=== PATIENT | male | born 1975 | race Caucasian/White ===

== ENCOUNTER → 2016-06-22 | Outpatient (CLI) | payer OTHER ==
[~2016-06-22] MED LIST: ACYC400T PO; PEPC10TA PO; ULTR50TA PO; VITATAB73 PO; [UNRECOGNIZED DRUG - OTHER] PO
--- NOTE | 2016-07-01 01:36 | ECWPNPC ---
PATIENT NAME: BETZY TRIPP : 1975 GENDER: MALE VISIT DATE: 06/22/2016 DISCHARGE DATE: 06/22/16 1629 VISIT LOCKED DATE TIME: PHYSICIAN: FREDERICK ECHEVERRIA RESOURCE: FREDERICK ECHEVERRIA REASON FOR APPOINTMENT 1. BACK- W/C HISTORY OF PRESENT ILLNESS HISTORY OF PRESENT ILLNESS: PAIN THE PATIENT DESCRIBES THE PAIN... 40 YEAR OLD MALE PATIENT WITH HISTORY OF CHRONIC BACK PAIN. PATIENT DESCRIBES THE PAIN SHARP, STABBING, IT COMES AND GOES, AND HAVING IT ALL THE TIME WITH A PAIN SORE OF 7/10 ON TODAY'S VISIT. 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 PATIENT REPORTS THAT SOMETIMES HE WAKED UP IN THE NIGHT DUE TO THE PAIN. PATIENT REPORTS THAT SOMETIMES HE DOES HAVE RADIATING PAIN DOWN TO HIS LEGS, NOT TODAY. PATIENT REPORTS THAT HE WAS CURRENTLY TAKING PHYSICAL THERAPY BUT THE SCRIPTED HAS ENDED. PATIENT REPORTS THAT WHEN HE WAS TAKING PHYSICAL THERAPY HE WENT FROM USING 4 TABS OF TRAMADOL TO ONE OR NONE A DAY. PATIENT REPORTS THAT PHYSICAL THERAPY DECREASES HIS PAIN AND ALLOWS HIM TO BE MOBILE AND ACTIVE AND DECREASE THE USAGE OF HIS MEDICATION INTAKE. , PATIENT DENIES UNEXPLAINABLE WEIGHT LOSS, FEVER, CHILLS, NEW CHANGES ON HIS URINARY OR BOWEL CONTROL. FALL RISK SCREENING: SCREENING :NO FALLS IN THE PAST YEAR CURRENT MEDICATIONS TAKING PEPCID COMPLETE 1 TABLET NEEDED ONCE DAILY TAKING ADVIL 200 MG TABLET 2 TABLETS NEEDED ORALLY EVERY 6 HRS TAKING TRAMADOL HCL 50 MG TABLET 1 ORALLY Q6H PRN PAIN MDD4 NOT-TAKING VALIUM 10 MG TABLET 1 ORALLY 1 TAB 1HR PRE PROC. MDD1 NOT-TAKING OXYCODONE HCL 5 MG TABLET 2 ORALLY 2 TAB 1HR PRE PROC. 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 SOCIAL HISTORY GENERAL: TOBACCO USE ARE YOU A:NONSMOKER LEARNING BARRIERS / SPECIAL NEEDS ORIENTED TO PLAN OF CARE: PATIENT, PAIN MANAGEMENT PATIENT, ORIENTED TO PLAN OF CARE: PATIENT, PAIN MANAGEMENT PATIENT. NEW PATIENT PAIN DIARY TODAY'S VISITNOTES FROM 0-10, WHAT LEVEL IS YOUR PAIN TODAY?0 PAIN CLINIC PFS, CLERGY, PUBLIC HEALTH REFERRALS PFS REFERRAL NEEDED?NO CLERGY REFERRAL NEEDED?NO PUBLIC HEALTH REFERRAL NEEDED?NO WAS THE PROVIDER NOTIFIED OF ANY PERTINENT INFO?NO PFS REFERRAL NEEDED?NO CLERGY REFERRAL NEEDED?NO PUBLIC HEALTH REFERRAL NEEDED?NO WAS THE PROVIDER NOTIFIED OF ANY PERTINENT INFO?NO HOSPITALIZATION/MAJOR DIAGNOSTIC PROCEDURE NO HOSPITALIZATION HISTORY. REVIEW OF SYSTEMS CONSTITUTIONAL: ANY CHANGE IN YOUR MEDICAL CONDITION? NO . CHILLS NO . FEVER NO . INFECTION: DO YOU HAVE NEW INFECTIONS? NO . DO YOU HAVE HISTORY OF MRSA? NO . MUSCULOSKELETAL: ANY NEW PATTERNS OF PAIN OR NUMBNESS? NO . GASTROENTEROLOGY: ANY NEW CHANGE IN BOWEL CONTROL? NO . GENITOURINARY: ANY NEW CHANGE IN BLADDER CONTROL? NO . IS THERE A CHANCE YOU COULD BE ? NO . HEMATOLOGY/LYMPH: DO YOU TAKE ANY BLOOD THINNERS? (FOR EXAMPLE- COUMADIN, PLAVIX, AGGRENOX, PLATEL, PRADAXA, OR XARELTO) NO . WHEN WAS YOUR LAST DOSE? DATE: TIME: . NEUROLOGY: HAVE YOU FALLEN IN THE PAST 6 MONTHS? YES, STATES HE FALLS ALL THE TIME. FELL APPROX 1 MONTH AGO ON THE ICE . ANY NEW EXTREMITY NUMBNESS OR WEAKNESS? NO . CARDIOLOGY: DO YOU HAVE A PACEMAKER OR DEFIBRILLATOR? NO . RESPIRATORY: HAVE YOU BEEN SICK IN THE PAST WEEK? NO . FEVER NO . FLU LIKE SYMPTOMS? NO . COUGH NO . INTEGUMENTARY: DO YOU HAVE ANY RASHES OR OPEN SORES? NO . ALLERGIC/IMMUNO: ARE YOU ALLERGIC TO SHELLFISH OR IV DYE? NO . ANY NEW ALLERGIES? NO . PSYCHIATRIC: DO YOU HAVE THOUGHTS OF HURTING YOURSELF OR SOMEONE ELSE? NO . ARE YOU ABUSED, NEGLECTED, OR IN AN UNSAFE ENVIRONMENT? NO . ENDOCRINOLOGY: ARE YOU DIABETIC? NO . OTHER: DO YOU NEED ANY PRESCRIPTIONS? YES, TRAMADOL . IF YES, PLEASE LIST: ____ . ANY NEW PROBLEMS WITH YOUR MEDICATIONS? NO . WHEN DID YOU LAST EAT? ____ . WHEN DID YOU LAST DRINK? ____ . WHAT DID YOU LAST DRINK? ____ . NAME OF PERSON DRIVING YOU HOME? ____ . DO YOU HAVE ANY OTHER QUESTIONS OR CONCERNS YES, NEEDS RE-EVAL TO CONTINUE PT. . REVIEWED BY: PROVIDER: FREDERICK ECHEVERRIA MD . VITAL SIGNS WT 220 LBS, HT 72 IN, BMI 29.83 INDEX, BP 140/77 MM HG, HR 78 /MIN, RR 16 /MIN, TEMP 97.5 F, OXYGEN SAT % 96, NA INITIALS SC, REVIEWED BY: AD. EXAMINATION : PATIENT IS ALERT O X 3 AND COOPERATIVE. PATIENT IS ABLE TO FLEX HIS BACK AT 85 DEGREES AND EXTEND AT 20 DEGREES. THERE IS TENDERNESS IN THE LUMBAR PARASPINAL MUSCLE GROUP. PATIENT'S RIGHT LEG IS WEAKER COMPARED TO THE LEFT LEG ESPECIALLY AT FLEXION. MRI OF THE LUMBAR SPINE DONE ON 09/16/2015 SHOWS DISC BULGES AT MULTIPLE LEVELS AND FACET ARTHROPATHY. ASSESSMENTS INTERVERTEBRAL DISC DISORDERS WITH RADICULOPATHY, LUMBAR REGION - M51.16 (PRIMARY) INTERVERTEBRAL DISC DISORDERS WITH RADICULOPATHY, LUMBOSACRAL REGION - M51.17 TREATMENT INTERVERTEBRAL DISC DISORDERS WITH RADICULOPATHY, LUMBAR REGION NOTES: WE DISCUSSED SEVERAL ISSUES WITH MR. TRIPP'S PAIN MANAGEMENT CASE. PATIENT WILL START ON CYMBALTA AND IBUPROFEN. I DISCUSSED WITH THE PATIENT THAT HE NEEDS TO TAKE IT SLOW WITH THE MEDICATIONS TO SEE HOW HIS BODY WILL REACT. I INFORMED THE PATIENT WITH IBUPROFEN HE NEEDS TO TAKE IT WITH FOOD DUE TO THE POTENTIAL SIDE EFFECTS THAT CAN AFFECT HIS STOMACH. WE WILL STOP TRAMADOL. DUE TO THE PATIENT HAVING INCREASE MOBILITY AND FUNCTIONALITY AND A DECREASE IN THE INTAKE OF MEDICATIONS I WILL WRITE ANOTHER SCRIPT FOR HIM TO CONTINUE WITH PHYSICAL THERAPY. PATIENT TO FOLLOW UP WITH ME IN 3 WEEKS. , INSTRUCTIONS WERE GIVEN, QUESTIONS WERE ANSWERED, PATIENT REPORTS UNDERSTANDING AND AGREES WITH THE PLAN. I, YUMIKO PEPPER, DOCUMENTED THE ABOVE INFORMATION ACTING A SCRIBE FOR DR. ECHEVERRIA. I HAVE REVIEWED THE ABOVE DOCUMENT, WRITTEN BY YUMIKO PEPPER SCRIBSanthosh AND I VERIFY THAT IT IS ACCURATE. OTHERS START CYMBALTA CAPSULE DELAYED RELEASE PARTICLES, 30 MG, 1 CAPSULE, ORALLY FOR PAIN, TWICE A DAY, 30 DAY(S), 60, REFILLS 1 START IBUPROFEN TABLET, 800 MG, 1 TABLET, ORALLY WITH FOOD, THREE TIMES A DAY NEEDED FOR PAIN, 30 DAY(S), 75, REFILLS 1 PROCEDURES PN WORKMANS' COMP OPINION IN YOUR OPINION, WAS THE INCIDENT THAT THE PATIENT DESCRIBED THE COMPETENT MEDICAL CAUSE OF THIS INJURY/ILLNESS? YES ARE THE PATIENT'S COMPLAINTS CONSISTENT WITH HIS/HER HISTORY OF THE INJURY/ILLNESS? YES IS THE PATIENT'S HISTORY OF THE INJURY/ILLNESS CONSISTENT WITH YOUR OBJECTIVE FINDING? YES WHAT IS THE PERCENTAGE OF TEMPORARY IMPAIRMENT? MODERATE = 50% IS THE PATIENT WORKING? NO DOCTOR ON SITE: FREDERICK RIVERA MD PREVENTIVE MEDICINE PAIN CLINIC TEACHING: MEDICATIONS PRINTED INFORMATION ON CYMBALTA AND IBUPROFEN GIVEN TO PATIENT. PATIENT GIVEN OPPORTUNITY TO ASK QUESTIONS REGARDING NEW MEDS.. PROCEDURE CODES G8730 PAIN ASSESS POS TOOL F/U PLAN DOC G8427 DOC MEDS VERIFIED W/PT OR RE DISPOSITION & COMMUNICATION FOLLOW UP 3 WEEKS ELECTRONICALLY SIGNED BY FREDERICK ECHEVERRIA MD ON 06/30/2016 AT 09:23 AM EST DISCLAIMER : THIS IS A VISIT SUMMARY EXTRACTED FROM THE [employer] CHART. IT IS NOT A COPY OF THE [employer] PROGRESS NOTE. NATALIIA
== END ==
LOC: M PAIN 14:40
PROVIDERS: ATTEND Anesthesiology
DX: M51.16 Intervertebral disc disorders with radiculopathy, lumbar region (principal); M51.17 Intervertebral disc disorders with radiculopathy, lumbosacral region; M54.5 Low back pain; M54.2 Cervicalgia; G89.29 Other chronic pain; Z79.891 Long term (current) use of opiate analgesic

== ENCOUNTER → 2016-07-13 | Outpatient (CLI) | payer OTHER ==
--- NOTE | 2016-07-24 23:34 | ECWPNPC ---
PATIENT NAME: BETZY TRIPP : 1975 GENDER: MALE VISIT DATE: 07/13/2016 DISCHARGE DATE: 07/13/16 1650 VISIT LOCKED DATE TIME: PHYSICIAN: FREDERICK ECHEVERRIA RESOURCE: FREDERICK ECHEVERRIA REASON FOR APPOINTMENT 1. W/C BACK HISTORY OF PRESENT ILLNESS HISTORY OF PRESENT ILLNESS: PAIN THE PATIENT DESCRIBES THE PAIN... 40 YEAR OLD MALE PATIENT WITH HISTORY OF CHRONIC BACK PAIN. PATIENT DESCRIBES THE PAIN ACHING, SHARP, STABBING, THROBBING, SORE, SHOOTING, AND HAVING IT ALL THE TIME WITH A PAIN SCORE OF 9/10 ON TODAY'S VISIT. PATIENT REPORTS THAT SINCE HE HAS STOPPED PHYSICAL THERAPY HIS PAIN LEVELS HAVE GONE UP AND HIS MEDICATION INTAKE OF TRAMADOL HAS INCREASED. PATIENT REPORTS THAT HE WAS NOT ABLE TO TAKE CYMBALTA PRESCRIBED ON THE LAST VISIT, DUE TO WORKER COMP DENYING THE MEDICATION. PATIENT STATES THAT BEFORE PHYSICAL THERAPY HE HAD DIFFICULTIES PUTTING ON CLOTHING, SHOES AND SOCKS, DRIVING A VEHICLE AND GETTING IN AND OUT OF THE CAR. DURING PHYSICAL THERAPY PUTTING ON CLOTHING, SHOES, AND SOCK BECAME AN EASIER TASK, DRIVING A VEHICLE AND GETTING IN AND OUT OF THE CAR WAS ALSO EASIER. NOW PATIENT REPORTS THAT DOING THE SAME TASK IS BECOMING DIFFICULT AGAIN. PATIENT DENIES UNEXPLAINABLE WEIGHT LOSS, FEVER, CHILLS, NEW CHANGES ON HIS URINARY OR BOWEL CONTROL. FALL RISK SCREENING: SCREENING :NO FALLS IN THE PAST YEAR CURRENT MEDICATIONS TAKING IBUPROFEN 800 MG TABLET 1 TABLET ORALLY WITH FOOD THREE TIMES A DAY NEEDED FOR PAIN TAKING PEPCID COMPLETE 1 TABLET NEEDED ONCE DAILY TAKING ADVIL 200 MG TABLET 2 TABLETS NEEDED ORALLY EVERY 6 HRS TAKING TRAMADOL HCL 50 MG TABLET 1 ORALLY Q6H PRN PAIN MDD4 TAKING ALEVE 220 MG TABLET 1 TABLET NEEDED ORALLY EVERY 12 HRS NOT-TAKING CYMBALTA 30 MG CAPSULE DELAYED RELEASE PARTICLES 1 CAPSULE ORALLY FOR PAIN TWICE A DAY NOT-TAKING VALIUM 10 MG TABLET 1 ORALLY 1 TAB 1HR PRE PROC. MDD1 NOT-TAKING OXYCODONE HCL 5 MG TABLET 2 ORALLY 2 TAB 1HR PRE PROC. 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 SOCIAL HISTORY GENERAL: TOBACCO USE ARE YOU A:NONSMOKER LEARNING BARRIERS / SPECIAL NEEDS ORIENTED TO PLAN OF CARE: PATIENT, PAIN MANAGEMENT PATIENT, ORIENTED TO PLAN OF CARE: PATIENT, PAIN MANAGEMENT PATIENT. NEW PATIENT PAIN DIARY TODAY'S VISITNOTES FROM 0-10, WHAT LEVEL IS YOUR PAIN TODAY?0 PAIN CLINIC PFS, CLERGY, PUBLIC HEALTH REFERRALS PFS REFERRAL NEEDED?NO CLERGY REFERRAL NEEDED?NO PUBLIC HEALTH REFERRAL NEEDED?NO WAS THE PROVIDER NOTIFIED OF ANY PERTINENT INFO?NO PFS REFERRAL NEEDED?NO CLERGY REFERRAL NEEDED?NO PUBLIC HEALTH REFERRAL NEEDED?NO WAS THE PROVIDER NOTIFIED OF ANY PERTINENT INFO?NO HOSPITALIZATION/MAJOR DIAGNOSTIC PROCEDURE NO HOSPITALIZATION HISTORY. REVIEW OF SYSTEMS CONSTITUTIONAL: ANY CHANGE IN YOUR MEDICAL CONDITION? NO . CHILLS NO . FEVER NO . INFECTION: DO YOU HAVE NEW INFECTIONS? NO . DO YOU HAVE HISTORY OF MRSA? NO . MUSCULOSKELETAL: ANY NEW PATTERNS OF PAIN OR NUMBNESS? YES PT REPORTS HE FEELS HIS PAIN HAS NOW EXTENDED TOWARDS BUTTOCKS AND HIPS AND HAS INCREASED IN INTENSITY . GASTROENTEROLOGY: ANY NEW CHANGE IN BOWEL CONTROL? NO . GENITOURINARY: ANY NEW CHANGE IN BLADDER CONTROL? NO . IS THERE A CHANCE YOU COULD BE ? NO . HEMATOLOGY/LYMPH: DO YOU TAKE ANY BLOOD THINNERS? (FOR EXAMPLE- COUMADIN, PLAVIX, AGGRENOX, PLATEL, PRADAXA, OR XARELTO) NO . WHEN WAS YOUR LAST DOSE? DATE: TIME: . NEUROLOGY: HAVE YOU FALLEN IN THE PAST 6 MONTHS? NO . ANY NEW EXTREMITY NUMBNESS OR WEAKNESS? NO . CARDIOLOGY: DO YOU HAVE A PACEMAKER OR DEFIBRILLATOR? NO . RESPIRATORY: HAVE YOU BEEN SICK IN THE PAST WEEK? NO . FEVER NO . FLU LIKE SYMPTOMS? NO . COUGH NO . INTEGUMENTARY: DO YOU HAVE ANY RASHES OR OPEN SORES? NO . ALLERGIC/IMMUNO: ARE YOU ALLERGIC TO SHELLFISH OR IV DYE? NO . ANY NEW ALLERGIES? NO . PSYCHIATRIC: DO YOU HAVE THOUGHTS OF HURTING YOURSELF OR SOMEONE ELSE? NO . ARE YOU ABUSED, NEGLECTED, OR IN AN UNSAFE ENVIRONMENT? NO . ENDOCRINOLOGY: ARE YOU DIABETIC? NO . OTHER: DO YOU NEED ANY PRESCRIPTIONS? YES TRAMADOL . IF YES, PLEASE LIST: ____ . ANY NEW PROBLEMS WITH YOUR MEDICATIONS? NO . WHEN DID YOU LAST EAT? ____ . WHEN DID YOU LAST DRINK? ____ . WHAT DID YOU LAST DRINK? ____ . NAME OF PERSON DRIVING YOU HOME? ____ . DO YOU HAVE ANY OTHER QUESTIONS OR CONCERNS YES CYMBALTA WAS NOT APPROVED. PT ALSO REPORTS HE WAS NOT ABLE TO GET PHYSICAL THERAPY, IT WAS DENIED BECAUSE OF AN INCOMPLETE ORDER . REVIEWED BY: PROVIDER: FREDERICK ECHEVERRIA MD . VITAL SIGNS WT 221 LBS, HT 72 IN, BMI 29.97 INDEX, BP 132/78 MM HG, HR 62 /MIN, RR 16 /MIN, TEMP 97.6 F, OXYGEN SAT % 97%, SAFE IN ENV? (Y/N) YES, NA INITIALS SC 15:05, REVIEWED BY: KIRILL. EXAMINATION : PATIENT IS ALERT O X 3 AND COOPERATIVE. PATIENT AMBULATES WITH A LIMP ON THE RIGHT LEG. THERE IS TENDERNESS IN THE LUMBAR PARASPINAL MUSCLE GROUP. RIGHT LEG IS WEAKER AT FLEXION AND EXTENSION. MRI OF THE LUMBAR SPINE DONE ON 09/16/2015 SHOWS DISC BULGES AT MULTIPLE LEVELS, CANAL STENOSIS, AND FACET ARTHROPATHY. ASSESSMENTS INTERVERTEBRAL DISC DISORDERS WITH RADICULOPATHY, LUMBAR REGION - M51.16 (PRIMARY) INTERVERTEBRAL DISC DISORDERS WITH RADICULOPATHY, LUMBOSACRAL REGION - M51.17 TREATMENT INTERVERTEBRAL DISC DISORDERS WITH RADICULOPATHY, LUMBAR REGION NOTES: WE DISCUSSED SEVERAL ISSUES WITH MR. TRIPP'S PAIN MANAGEMENT CASE. AT THIS TIME PATIENT WILL CONTINUE ON TRAMADOL DUE TO COMP DENYING CYMBALTA, PATIENT IS A GOOD CANDIDATE FOR A L5-S1 EPIDURAL INJECTION. WE DISCUSSED THE RISK, BENEFITS, AND ALTERNATIVES AND THE PATIENT WOULD LIKE TO PROCEED. PATIENT WILL BE BOOKED PENDING APPROVAL. DUE TO THE SUCCESS OF PHYSICAL THERAPY I WILL REQUEST APPROVAL FOR THE PATIENT TO CONTINUE WITH PHYSICAL THERAPY FOR 6 WEEKS, 3 TIMES A WEEK. PATIENT WILL FOLLOW UP WITH ME IN 1 MONTH. INSTRUCTIONS WERE GIVEN, QUESTIONS WERE ANSWERED, PATIENT REPORTS UNDERSTANDING AND AGREES WITH THE PLAN. I, YUIMKO PEPPER, DOCUMENTED THE ABOVE INFORMATION ACTING A SCRIBE FOR DR. ECHEVERRIA. I HAVE REVIEWED THE ABOVE DOCUMENT, WRITTEN BY YUMIKO PEPPER SCRIBSanthosh AND I VERIFY THAT IT IS ACCURATE. ,. OTHERS REFILL IBUPROFEN TABLET, 800 MG, 1 TABLET, ORALLY WITH FOOD, THREE TIMES A DAY NEEDED FOR PAIN, 30 DAY(S), 75, REFILLS 1 REFILL TRAMADOL HCL TABLET, 50 MG, 1, ORALLY, Q6H PRN PAIN MDD4, 30 DAY(S), 105, REFILLS 0 NOTES: LUMBAR EPIDURAL INJECTION: YOUR PROCEDURE MATERIAL WAS PRINTED. PROCEDURES PN WORKMANS' COMP OPINION IN YOUR OPINION, WAS THE INCIDENT THAT THE PATIENT DESCRIBED THE COMPETENT MEDICAL CAUSE OF THIS INJURY/ILLNESS? YES ARE THE PATIENT'S COMPLAINTS CONSISTENT WITH HIS/HER HISTORY OF THE INJURY/ILLNESS? YES IS THE PATIENT'S HISTORY OF THE INJURY/ILLNESS CONSISTENT WITH YOUR OBJECTIVE FINDING? YES WHAT IS THE PERCENTAGE OF TEMPORARY IMPAIRMENT? MODERATE = 50% IS THE PATIENT WORKING? YES DOCTOR ON SITE: FREDERICK RIVERA MD PROCEDURE CODES FA211 ESTABILISHED PATIENT [facility] FACILITY CHARGE G8730 PAIN ASSESS POS TOOL F/U PLAN DOC G8427 DOC MEDS VERIFIED W/PT OR RE DISPOSITION & COMMUNICATION FOLLOW UP 4 WEEKS ELECTRONICALLY SIGNED BY FREDERICK ECHEVERRIA MD ON 07/24/2016 AT 08:53 PM EDT DISCLAIMER : THIS IS A VISIT SUMMARY EXTRACTED FROM THE [employer] CHART. IT IS NOT A COPY OF THE [employer] PROGRESS NOTE. NATALIIA
== END ==
LOC: M PAIN 14:40
PROVIDERS: ATTEND Anesthesiology
DX: Z09 Encounter for follow-up examination after completed treatment for conditions other than malignant neoplasm (principal); G89.29 Other chronic pain; M51.16 Intervertebral disc disorders with radiculopathy, lumbar region; M51.17 Intervertebral disc disorders with radiculopathy, lumbosacral region; J30.89 Other allergic rhinitis; Z79.891 Long term (current) use of opiate analgesic; Z79.1 Long term (current) use of non-steroidal anti-inflammatories (NSAID); Z79.899 Other long term (current) drug therapy

== ENCOUNTER → 2016-08-20 | Outpatient (CLI) | payer OTHER | LOC: M PAIN 15:00 | PROVIDERS: ATTEND Anesthesiology | DX: Z53.29 Procedure and treatment not carried out because of patient's decision for other reasons (principal) ==

== ENCOUNTER → 2016-10-19 | Outpatient (CLI) | payer OTHER ==
--- NOTE | 2016-10-20 00:17 | ECWPNPC ---
PATIENT NAME: BETZY TRIPP : 1975 GENDER: MALE VISIT DATE: 10/19/2016 DISCHARGE DATE: 10/19/16 1601 VISIT LOCKED DATE TIME: PHYSICIAN: RJ CARDOSO RESOURCE: RJ CARDOSO REASON FOR APPOINTMENT 1. W/C BACK HISTORY OF PRESENT ILLNESS HISTORY OF PRESENT ILLNESS: HERE FOR F/U AND MANAGEMENT OF PERSISTENT LOW BACK PAIN.DESCRIBES PAIN CONSTANT ACHING ACROSS LOW BACK R>L.REPORTS INTERMITTENT RIGHT LEG PAIN.RATING PAIN VAS 8/10.JUST BEGAN PT.REPORTING SOME IMPROVEMENT IN PAIN.DISCUSSED LESI AND PATIENT WOULD LIKE TO HOLD OFF UNTIL FALL.STATES HIS PAIN USUALLY GETS BETTER IN SUMMER.REPORTS THAT RAIN AGGREVATES PAIN.USING TRAMADOL 50MG TID.RATING PAIN VAS 8/10.THIS IS A WORK RELATED INJURY 1996. PAIN THE PATIENT DESCRIBES THE PAIN... THE PATIENT DESCRIBES THE PAIN... FALL RISK SCREENING: SCREENING :NO FALLS IN THE PAST YEAR CURRENT MEDICATIONS TAKING PEPCID COMPLETE 1 TABLET NEEDED ONCE DAILY TAKING ADVIL 200 MG TABLET 2 TABLETS NEEDED ORALLY EVERY 6 HRS TAKING ALEVE 220 MG TABLET 1 TABLET NEEDED ORALLY EVERY 12 HRS TAKING TRAMADOL HCL 50 MG TABLET 1 ORALLY Q6H PRN PAIN MDD4 NOT-TAKING IBUPROFEN 800 MG TABLET 1 TABLET ORALLY WITH FOOD THREE TIMES A DAY NEEDED FOR PAIN NOT-TAKING CYMBALTA 30 MG CAPSULE DELAYED RELEASE PARTICLES 1 CAPSULE ORALLY FOR PAIN TWICE A DAY NOT-TAKING VALIUM 10 MG TABLET 1 ORALLY 1 TAB 1HR PRE PROC. MDD1 NOT-TAKING OXYCODONE HCL 5 MG TABLET 2 ORALLY 2 TAB 1HR PRE PROC. 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 NO . CHILLS NO . FEVER NO . INFECTION: DO YOU HAVE NEW INFECTIONS? NO . DO YOU HAVE HISTORY OF MRSA? NO . MUSCULOSKELETAL: ANY NEW PATTERNS OF PAIN OR NUMBNESS? NO . GASTROENTEROLOGY: ANY NEW CHANGE IN BOWEL CONTROL? NO . GENITOURINARY: ANY NEW CHANGE IN BLADDER CONTROL? NO . IS THERE A CHANCE YOU COULD BE ? NO . HEMATOLOGY/LYMPH: DO YOU TAKE ANY BLOOD THINNERS? (FOR EXAMPLE- COUMADIN, PLAVIX, AGGRENOX, PLATEL, PRADAXA, OR XARELTO) NO . WHEN WAS YOUR LAST DOSE? DATE: TIME: . NEUROLOGY: HAVE YOU FALLEN IN THE PAST 6 MONTHS? YES, PT STATES 06/2016, HE WAS WALKING INTO [employer], HIS RIGHT FOOT OCCASIONALLY DROPS WHILE WALKING, FELL FACE FORWARD. PT DENIES INJURY REQUIRING MEDICAL ATTENTION . ANY NEW EXTREMITY NUMBNESS OR WEAKNESS? NO . CARDIOLOGY: DO YOU HAVE A PACEMAKER OR DEFIBRILLATOR? NO . RESPIRATORY: HAVE YOU BEEN SICK IN THE PAST WEEK? NO . FEVER NO . FLU LIKE SYMPTOMS? NO . COUGH NO . INTEGUMENTARY: DO YOU HAVE ANY RASHES OR OPEN SORES? NO . ALLERGIC/IMMUNO: ARE YOU ALLERGIC TO SHELLFISH OR IV DYE? NO . ANY NEW ALLERGIES? NO . PSYCHIATRIC: DO YOU HAVE THOUGHTS OF HURTING YOURSELF OR SOMEONE ELSE? NO . ARE YOU ABUSED, NEGLECTED, OR IN AN UNSAFE ENVIRONMENT? NO . ENDOCRINOLOGY: ARE YOU DIABETIC? NO . OTHER: DO YOU NEED ANY PRESCRIPTIONS? YES, TRAMADOL . IF YES, PLEASE LIST: ____ . ANY NEW PROBLEMS WITH YOUR MEDICATIONS? NO . WHEN DID YOU LAST EAT? ____ . WHEN DID YOU LAST DRINK? ____ . WHAT DID YOU LAST DRINK? ____ . NAME OF PERSON DRIVING YOU HOME? ____ . DO YOU HAVE ANY OTHER QUESTIONS OR CONCERNS NO . REVIEWED BY: PROVIDER: RJ BECKER . VITAL SIGNS WT 220.0 LBS, HT 72 IN, BMI 29.83 INDEX, BP 142/89 MM HG, HR 60 /MIN, RR 16 /MIN, TEMP 98.0 F, OXYGEN SAT % 96%, SAFE IN ENV? (Y/N) Y, NA INITIALS TL 1459, REVIEWED BY: EM. EXAMINATION GENERAL EXAMINATION: LUNGS:LUNG SOUNDS ARE CLEAR. HEART:HEART RATE REGULAR. MUSCULOSKELETAL:*, MUSCLE STRENGTH TESTING 5/5 BILATERAL, PALPATION: POSITIVE FOR PAIN OVER L/S SPINE. POSITIVE FOR PAIN OVER RIGHT LUMBAR FACET AND RIGHT SIJ.. DIAGNOSTIC: . ASSESSMENTS LUMBAR SPINAL STENOSIS - M48.06 (PRIMARY) PROTRUDED LUMBAR DISC - M51.26 LUMBAR RADICULOPATHY - M54.16 SACROILIAC JOINT PAIN - M53.3 TREATMENT LUMBAR SPINAL STENOSIS REFILL TRAMADOL HCL TABLET, 50 MG, 1, ORALLY, Q6H PRN PAIN MDD4, 30 DAYS, 105, REFILLS 0 NOTES: CONTINUE PT. PROCEDURES PN WORKMANS' COMP OPINION IN YOUR OPINION, WAS THE INCIDENT THAT THE PATIENT DESCRIBED THE COMPETENT MEDICAL CAUSE OF THIS INJURY/ILLNESS? YES ARE THE PATIENT'S COMPLAINTS CONSISTENT WITH HIS/HER HISTORY OF THE INJURY/ILLNESS? YES IS THE PATIENT'S HISTORY OF THE INJURY/ILLNESS CONSISTENT WITH YOUR OBJECTIVE FINDING? YES WHAT IS THE PERCENTAGE OF TEMPORARY IMPAIRMENT? MODERATE = 50% IS THE PATIENT WORKING? YES DOCTOR ON SITE: FREDERICK RIVERA MD DISPOSITION & COMMUNICATION FOLLOW UP 4 WEEKS W/C DR. ECHEVERRIA ELECTRONICALLY SIGNED BY EUGENIO WOLFF ON 10/19/2016 AT 04:17 PM EDT DISCLAIMER : THIS IS A VISIT SUMMARY EXTRACTED FROM THE [employer] CHART. IT IS NOT A COPY OF THE [employer] PROGRESS NOTE. NATALIIA
== END | disposition home or self-care (01) ==
LOC: M PAIN 15:00
PROVIDERS: ATTEND Nurse Practitioner Family
DX: G89.29 Other chronic pain (principal); M48.06 Spinal stenosis, lumbar region; M51.26 Other intervertebral disc displacement, lumbar region; M54.16 Radiculopathy, lumbar region; M53.3 Sacrococcygeal disorders, not elsewhere classified; M54.2 Cervicalgia; R12 Heartburn; M19.90 Unspecified osteoarthritis, unspecified site; J30.89 Other allergic rhinitis

== ENCOUNTER → 2016-11-16 | Outpatient (CLI) | payer OTHER ==
--- NOTE | 2016-11-30 02:11 | ECWPNPC ---
PATIENT NAME: BETZY TRIPP : 1975 GENDER: MALE VISIT DATE: 11/16/2016 DISCHARGE DATE: 11/16/16 1620 VISIT LOCKED DATE TIME: PHYSICIAN: FREDERICK ECHEVERRIA RESOURCE: FREDERICK ECHEVERRIA REASON FOR APPOINTMENT 1. W/C BACK PAIN HISTORY OF PRESENT ILLNESS HISTORY OF PRESENT ILLNESS: PAIN THE PATIENT DESCRIBES THE PAIN... 40 YEAR OLD MALE PATIENT WITH HISTORY OF CHRONIC BACK PAIN. PATIENT DESCRIBES THE PAIN SHARP, STABBING, IT COMES AND GOES, AND HAVING IT ALL THE TIME WITH A PAIN SORE OF 4/10 ON TODAY'S VISIT. 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 PATIENT REPORTS THAT SOMETIMES HE WAKED UP IN THE NIGHT DUE TO THE PAIN. PATIENT REPORTS THAT SOMETIMES HE DOES HAVE RADIATING PAIN DOWN TO HIS LEGS. PATIENT WOULD LIKE ANOTHER SCRIPT FOR PHYSICAL THERAPY. FALL RISK SCREENING: SCREENING :NO FALLS IN THE PAST YEAR CURRENT MEDICATIONS TAKING PEPCID COMPLETE 1 TABLET NEEDED ONCE DAILY TAKING ADVIL 200 MG TABLET 2 TABLETS NEEDED ORALLY EVERY 6 HRS TAKING TRAMADOL HCL 50 MG TABLET 1 ORALLY Q6H PRN PAIN MDD4 NOT-TAKING IBUPROFEN 800 MG TABLET 1 TABLET ORALLY WITH FOOD THREE TIMES A DAY NEEDED FOR PAIN NOT-TAKING VALIUM 10 MG TABLET 1 ORALLY 1 TAB 1HR PRE PROC. MDD1 DISCONTINUED ALEVE 220 MG TABLET 1 TABLET NEEDED ORALLY EVERY 12 HRS DISCONTINUED CYMBALTA 30 MG CAPSULE DELAYED RELEASE PARTICLES 1 CAPSULE ORALLY FOR PAIN TWICE A DAY DISCONTINUED OXYCODONE HCL 5 MG TABLET 2 ORALLY 2 TAB 1HR PRE PROC. MDD2 MEDICATION LIST REVIEWED AND RECONCILED WITH THE PATIENT PAST MEDICAL HISTORY LOW BACK PAIN NECK PAIN HEARTBURN ARTHRITIS ALLERGIES ENVIRONMENTAL: SINUS CONGESTION: ALLERGY REVIEW OF SYSTEMS REVIEWED BY: PROVIDER: . CONSTITUTIONAL: ANY CHANGE IN YOUR MEDICAL CONDITION? NO . CHILLS NO . FEVER NO . INFECTION: DO YOU HAVE NEW INFECTIONS? NO . DO YOU HAVE HISTORY OF MRSA? NO . MUSCULOSKELETAL: ANY NEW PATTERNS OF PAIN OR NUMBNESS? YES, PAIN IS MORE IN RIGHT BUTTUCKS AND RADIATES UP INTO THE BACK. TRAMADOL DOESNT HELP THE PAIN. HURTS TO STANDS. . GASTROENTEROLOGY: ANY NEW CHANGE IN BOWEL CONTROL? NO . GENITOURINARY: ANY NEW CHANGE IN BLADDER CONTROL? NO . IS THERE A CHANCE YOU COULD BE ? NO . HEMATOLOGY/LYMPH: DO YOU TAKE ANY BLOOD THINNERS? (FOR EXAMPLE- COUMADIN, PLAVIX, AGGRENOX, PLATEL, PRADAXA, OR XARELTO) NO . WHEN WAS YOUR LAST DOSE? DATE: TIME: . NEUROLOGY: HAVE YOU FALLEN IN THE PAST 6 MONTHS? NO . ANY NEW EXTREMITY NUMBNESS OR WEAKNESS? NO . CARDIOLOGY: DO YOU HAVE A PACEMAKER OR DEFIBRILLATOR? NO . RESPIRATORY: HAVE YOU BEEN SICK IN THE PAST WEEK? NO . FEVER NO . FLU LIKE SYMPTOMS? NO . COUGH NO . INTEGUMENTARY: DO YOU HAVE ANY RASHES OR OPEN SORES? NO . ALLERGIC/IMMUNO: ARE YOU ALLERGIC TO SHELLFISH OR IV DYE? NO . ANY NEW ALLERGIES? NO . PSYCHIATRIC: DO YOU HAVE THOUGHTS OF HURTING YOURSELF OR SOMEONE ELSE? NO . ARE YOU ABUSED, NEGLECTED, OR IN AN UNSAFE ENVIRONMENT? NO . ENDOCRINOLOGY: ARE YOU DIABETIC? NO . OTHER: DO YOU NEED ANY PRESCRIPTIONS? NO . IF YES, PLEASE LIST: ____ . ANY NEW PROBLEMS WITH YOUR MEDICATIONS? NO . WHEN DID YOU LAST EAT? ____ . WHEN DID YOU LAST DRINK? ____ . WHAT DID YOU LAST DRINK? ____ . NAME OF PERSON DRIVING YOU HOME? ____ . DO YOU HAVE ANY OTHER QUESTIONS OR CONCERNS YES, PT HELPED AND WOULD LIKE TO CONTINUE IT FOR THE RIGHT HIP/BUTTUCKS PAIN. SOMETIMES IT IS IN THE LEFT SIDE. . VITAL SIGNS WT 234.6 LBS, HT 72 IN, BMI 31.81 INDEX, BP 136/83 MM HG, HR 62 /MIN, RR 18 /MIN, TEMP 98.2 F, OXYGEN SAT % 96%, NA INITIALS SC 15:51, REVIEWED BY: KAYLEY. EXAMINATION : PATIENT IS ALERT O X 3 AND COOPERATIVE. PATIENT AMBULATES WITH A LIMP ON THE RIGHT LEG. THERE IS TENDERNESS IN THE LUMBAR PARASPINAL MUSCLE GROUP. RIGHT LEG IS WEAKER AT FLEXION AND EXTENSION. MRI OF THE LUMBAR SPINE DONE ON 09/16/2015 SHOWS DISC BULGES AT MULTIPLE LEVELS, CANAL STENOSIS, AND FACET ARTHROPATHY. 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 TRIPP'S PAIN MANAGEMENT CASE. AT THIS TIME THE PATIENT WILL CONTINUE WITH THE SAME MEDICATION REGIME BEFORE. PATIENT WILL USE TRAMADOL FOR THE SOMATIC PAIN AND IBUPROFEN FOR THE INFLAMMATION. PATIENT DENIES ABUSE OF ANY MEDICATION, DENIES USE OF ILLEGAL SUBSTANCES, AND STATES THAT HE IS ONLY USING THE MEDICATION FOR PAIN MANAGEMENT. PATIENT WAS REMINDED TO BRING ALL MEDICATIONS TO EACH VISIT. URINE TOXICOLOGY REPORT DONE ON 06/22/16 SHOWS CONSISTENT RESULTS WITH THE PATIENTS MEDICATION LIST. I WOULD LIKE THE PATIENT TO CONTINUE PHYSICAL THERAPY AT THIS TIME. WE DISCUSSED SEVERAL INJECTIONS THAT MAY AID THE PATIENT IN RELIEF. MR. TRIPP IS A GOOD CANDIDATE FOR SACROILIAC JOINT BLOCK OR A LUMBAR EPIDURAL. AT THIS TIME THE PATIENT REPORTS HIS PAIN IS MANAGEABLE AND DOES NOT WANT TO MOVE FORWARD WITH INTERVENTIONS AT THIS TIME. PATIENT WILL FOLLOW UP IN 2 MONTHS. INSTRUCTIONS WERE GIVEN, QUESTIONS WERE ANSWERED, PATIENT REPORTS UNDERSTANDING AND AGREES WITH THE PLAN. I, PAOLO CALLAWAY, DOCUMENTED THE ABOVE INFORMATION ACTING A SCRIBE FOR DR. ECHEVERRIA. I HAVE REVIEWED THE ABOVE DOCUMENT, WRITTEN BY PAOLO ANTHONY AND I VERIFY THAT IT IS ACCURATE. LUMBAR SPINAL STENOSIS REFILL TRAMADOL HCL TABLET, 50 MG, 1, ORALLY, Q6H PRN PAIN MDD4, 30 DAYS, 105, REFILLS 0 OTHERS REFILL IBUPROFEN TABLET, 800 MG, 1 TABLET, ORALLY WITH FOOD, THREE TIMES A DAY NEEDED FOR PAIN, 30 DAYS, 60, REFILLS 0 PROCEDURES PN WORKMANS' COMP OPINION IN YOUR OPINION, WAS THE INCIDENT THAT THE PATIENT DESCRIBED THE COMPETENT MEDICAL CAUSE OF THIS INJURY/ILLNESS? YES ARE THE PATIENT'S COMPLAINTS CONSISTENT WITH HIS/HER HISTORY OF THE INJURY/ILLNESS? YES IS THE PATIENT'S HISTORY OF THE INJURY/ILLNESS CONSISTENT WITH YOUR OBJECTIVE FINDING? YES WHAT IS THE PERCENTAGE OF TEMPORARY IMPAIRMENT? MODERATE = 50% IS THE PATIENT WORKING? YES DOCTOR ON SITE: FREDERICK RIVERA MD PROCEDURE CODES FA211 ESTABILISHED PATIENT [facility] FACILITY CHARGE G8427 DOC MEDS VERIFIED W/PT OR RE G8730 PAIN ASSESS POS TOOL F/U PLAN DOC DISPOSITION & COMMUNICATION FOLLOW UP 2 MONTHS ELECTRONICALLY SIGNED BY FREDERICK ECHEVERRIA MD ON 11/29/2016 AT 08:34 PM EDT DISCLAIMER : THIS IS A VISIT SUMMARY EXTRACTED FROM THE [employer] CHART. IT IS NOT A COPY OF THE [employer] PROGRESS NOTE. NATALIIA
== END | disposition home or self-care (01) ==
LOC: M PAIN 15:40
PROVIDERS: ATTEND Anesthesiology
DX: G89.29 Other chronic pain (principal); M46.1 Sacroiliitis, not elsewhere classified; M48.06 Spinal stenosis, lumbar region; M51.16 Intervertebral disc disorders with radiculopathy, lumbar region; M51.17 Intervertebral disc disorders with radiculopathy, lumbosacral region; M47.816 Spondylosis without myelopathy or radiculopathy, lumbar region; M47.817 Spondylosis without myelopathy or radiculopathy, lumbosacral region; R12 Heartburn; M19.90 Unspecified osteoarthritis, unspecified site; Z79.899 Other long term (current) drug therapy; J30.9 Allergic rhinitis, unspecified

== ENCOUNTER → 2017-01-20 | Outpatient (CLI) | payer OTHER ==
--- NOTE | 2017-01-27 02:13 | ECWPNPC ---
PATIENT NAME: BETZY TRIPP : 1975 GENDER: MALE VISIT DATE: 01/20/2017 DISCHARGE DATE: 01/20/17 1646 VISIT LOCKED DATE TIME: PHYSICIAN: FREDERICK ECHEVERRIA RESOURCE: FREDERICK ECHEVERRIA REASON FOR APPOINTMENT 1. LOW BACK PAIN W/C HISTORY OF PRESENT ILLNESS HISTORY OF PRESENT ILLNESS: PAIN THE PATIENT DESCRIBES THE PAIN... 40 YEAR OLD MALE PATIENT WITH HISTORY OF CHRONIC BACK PAIN. PATIENT DESCRIBES THE PAIN SHARP, STABBING, IT COMES AND GOES, AND HAVING IT ALL THE TIME WITH A PAIN SORE OF 4/10 ON TODAY'S VISIT. 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 PATIENT REPORTS THE PAIN RADIATES DOWN THE BACK INTO THE SACROILIAC JOINT. PATIENT IS USING IBUPROFEN, ADVIL, AND TRAMADOL FOR THE PAIN AND REPORTS THE MEDICATION TAKING THE EDGE OFF. PATIENT REPORTS DOING PHYSICAL THERAPY IN THE PAST AND STATES THAT IS INCREASING HIS MOBILITY AND FUNCTIONALITY. PATIENT CONTINUES TO DO STRETCHING AT HOME BUT REPORTS HE HAS MORE OF A BENEFIT WHEN HE GOES TO PHYSICAL THERAPY. MR. TRIPP STATES IT IS EASIER FOR HIM TO BEND OVER TO TIE HIS SHOES, SHOWER, AND CONTINUE TO WORK AT HIS JOB. PATIENT DENIES UNEXPLAINABLE WEIGHT LOSS, FEVER, CHILLS, NEW CHANGES ON HER URINARY OR BOWEL CONTROL. FALL RISK SCREENING: SCREENING :NO FALLS IN THE PAST YEAR CURRENT MEDICATIONS TAKING PEPCID COMPLETE 1 TABLET NEEDED ONCE DAILY TAKING ADVIL 200 MG TABLET 2 TABLETS NEEDED ORALLY EVERY 6 HRS TAKING TRAMADOL HCL 50 MG TABLET 1 ORALLY Q6H PRN PAIN MDD4 TAKING IBUPROFEN 800 MG TABLET 1 TABLET ORALLY WITH FOOD THREE TIMES A DAY NEEDED FOR PAIN NOT-TAKING VALIUM 10 MG TABLET 1 ORALLY 1 TAB 1HR PRE PROC. MDD1 MEDICATION LIST REVIEWED AND RECONCILED WITH THE PATIENT PAST MEDICAL HISTORY LOW BACK PAIN NECK PAIN HEARTBURN ARTHRITIS ALLERGIES ENVIRONMENTAL: SINUS CONGESTION: ALLERGY SURGICAL HISTORY HERNIA REPAIR YEARS AGO PYLORIC STENOSIS YEARS AGO REVIEW OF SYSTEMS REVIEWED BY: PROVIDER: FREDERICK ECHEVERRIA MD . CONSTITUTIONAL: ANY CHANGE IN YOUR MEDICAL CONDITION? NO . CHILLS NO . FEVER NO . INFECTION: DO YOU HAVE NEW INFECTIONS? NO . DO YOU HAVE HISTORY OF MRSA? NO . MUSCULOSKELETAL: ANY NEW PATTERNS OF PAIN OR NUMBNESS? YES, PT C/O CHANGE IN TYPE OF PAIN. PT STATES MEDS ARE NOT WORKING WELL THEY USED TO. PT STATES PAIN IS WORSENING WITH TIME. . GASTROENTEROLOGY: ANY NEW CHANGE IN BOWEL CONTROL? NO . GENITOURINARY: ANY NEW CHANGE IN BLADDER CONTROL? NO . IS THERE A CHANCE YOU COULD BE ? NO . HEMATOLOGY/LYMPH: DO YOU TAKE ANY BLOOD THINNERS? (FOR EXAMPLE- COUMADIN, PLAVIX, AGGRENOX, PLATEL, PRADAXA, OR XARELTO) NO . WHEN WAS YOUR LAST DOSE? DATE: TIME: . NEUROLOGY: HAVE YOU FALLEN IN THE PAST 6 MONTHS? NO . ANY NEW EXTREMITY NUMBNESS OR WEAKNESS? NO . CARDIOLOGY: DO YOU HAVE A PACEMAKER OR DEFIBRILLATOR? NO . RESPIRATORY: HAVE YOU BEEN SICK IN THE PAST WEEK? NO . FEVER NO . FLU LIKE SYMPTOMS? NO . COUGH NO . INTEGUMENTARY: DO YOU HAVE ANY RASHES OR OPEN SORES? NO . ALLERGIC/IMMUNO: ARE YOU ALLERGIC TO SHELLFISH OR IV DYE? NO . ANY NEW ALLERGIES? NO . PSYCHIATRIC: DO YOU HAVE THOUGHTS OF HURTING YOURSELF OR SOMEONE ELSE? NO . ARE YOU ABUSED, NEGLECTED, OR IN AN UNSAFE ENVIRONMENT? NO . ENDOCRINOLOGY: ARE YOU DIABETIC? NO . OTHER: DO YOU NEED ANY PRESCRIPTIONS? NO . IF YES, PLEASE LIST: ____ . ANY NEW PROBLEMS WITH YOUR MEDICATIONS? NO, PT EXPRESSES FRUSTRATION WITH PHYSICAL THERAPY GETTING DENIED FOR PHONE TAG. PT STATES HE HAS CALLED PAIN CLINIC SEVERAL TIMES SPOKEN WITH VARIOUS STAFF WHO HAVE TOLD HIM THAT THEY WILL LOOK INTO PHYSICAL THERAPY APPROVAL THEN PT GETS A REJECTION LETTER. . WHEN DID YOU LAST EAT? ____ . WHEN DID YOU LAST DRINK? ____ . WHAT DID YOU LAST DRINK? ____ . NAME OF PERSON DRIVING YOU HOME? ____ . DO YOU HAVE ANY OTHER QUESTIONS OR CONCERNS NO . VITAL SIGNS WT 234.6 LBS, HT 72 IN, BMI 31.81 INDEX, BP 133/89 MM HG, HR 58 /MIN, RR 18 /MIN, TEMP 98.6 F, OXYGEN SAT % 97%, NA INITIALS SC 16:02. EXAMINATION : PATIENT IS ALERT O X 3 AND COOPERATIVE. PATIENT AMBULATES WITH A LIMP ON THE RIGHT LEG. THERE IS TENDERNESS IN THE LUMBAR PARASPINAL MUSCLE GROUP. RIGHT LEG IS WEAKER AT FLEXION AND EXTENSION. STRAIGHT LEG RAISING TEST POSITIVE AT 45 DEGREES AT RIGHT LEG FOR RADICULOPATHY. MRI OF THE LUMBAR SPINE DONE ON 09/16/2015 SHOWS DISC BULGES AT MULTIPLE LEVELS, CANAL STENOSIS, AND FACET ARTHROPATHY. ASSESSMENTS INTERVERTEBRAL DISC DISORDER WITH RADICULOPATHY OF LUMBAR REGION - M51.16 (PRIMARY) SPONDYLOSIS OF LUMBAR REGION WITHOUT MYELOPATHY OR RADICULOPATHY - M47.816 INTERVERTEBRAL DISC DISORDER WITH RADICULOPATHY OF LUMBOSACRAL REGION - M51.17 SPONDYLOSIS OF LUMBOSACRAL REGION WITHOUT MYELOPATHY OR RADICULOPATHY - M47.817 TREATMENT INTERVERTEBRAL DISC DISORDER WITH RADICULOPATHY OF LUMBAR REGION NOTES: WE DISCUSSED SEVERAL ISSUES WITH MR. TRIPP'S PAIN MANAGEMENT CASE. AT THIS TIME THE PATIENT WILL CONTINUE WITH THE SAME MEDICATION REGIME BEFORE. PATIENT WILL USE TRAMADOL FOR THE SOMATIC PAIN AND IBUPROFEN FOR THE INFLAMMATION. PATIENT DENIES ABUSE OF ANY MEDICATION, DENIES USE OF ILLEGAL SUBSTANCES, AND STATES THAT HE IS ONLY USING THE MEDICATION FOR PAIN MANAGEMENT. PATIENT WAS REMINDED TO BRING ALL MEDICATIONS TO EACH VISIT. URINE TOXICOLOGY REPORT DONE ON 06/22/16 SHOWS CONSISTENT RESULTS WITH THE PATIENTS MEDICATION LIST. I WOULD LIKE THE PATIENT TO CONTINUE PHYSICAL THERAPY AT THIS TIME DUE TO THE PATIENT HAVING INCREASED MOBILITY AND FUNCTIONALITY WHILE DOING IT. PATIENT REPORTS DOING STRETCHES AND HOME EXCERCISES DAILY AND STATES THAT HE HAS A BETTER BENEFIT WHEN A PHYSICAL THERAPIST IS PRESENT AND WORKING WITH HIM. MR. TRIPP ALSO STATES THAT THEY ARE ABLE TO DO THINGS AT PHYSICAL THERAPY THAT HE IS UNABLE TO DO AT HOME THAT DECREASES HIS PAIN AND INCREASES HIS MOBILITY AND FUNCTINALITY. PATIENT REPORTS IT WAS EASIER FOR HIM TO GET IN AND OUT OF HIS VEHICLE TO CONTINUE TO TRAVEL TO WORK, BEND DOWN TO TIE HIS SHOES, AND REPORTS HIS RANGE OF MOTION INCREASED. DUE TO THE GOOD PAIN RELIEF THE PATIENT HAS RECEIVED FROM LUMBAR EPIDURAL I WOULD LIKE TO REQUEST ANOTHER LUMBAR EPIDURAL. IN THE PAST THE PATIENT REPORTED HAVING OVER 7 WEEKS OF 70 PERCENT PAIN RELIEF. WE DISCUSSED THE RISKS, BENENFITS, AND ALTNERATIVES OF THE INJECTION AND THE PATIENT WOULD LIKE TO PROCEED AT THIS TIME. INSTRUCTIONS WERE GIVEN, QUESTIONS WERE ANSWERED, PATIENT REPORTS UNDERSTANDING AND AGREES WITH THE PLAN. I, PAOLO CALLAWAY, DOCUMENTED THE ABOVE INFORMATION ACTING A SCRIBE FOR DR. ECHEVERRIA. I HAVE REVIEWED THE ABOVE DOCUMENT, WRITTEN BY PAOLO ANTHONY AND I VERIFY THAT IT IS ACCURATE. PROCEDURES PN WORKMANS' COMP OPINION IN YOUR OPINION, WAS THE INCIDENT THAT THE PATIENT DESCRIBED THE COMPETENT MEDICAL CAUSE OF THIS INJURY/ILLNESS? YES ARE THE PATIENT'S COMPLAINTS CONSISTENT WITH HIS/HER HISTORY OF THE INJURY/ILLNESS? YES IS THE PATIENT'S HISTORY OF THE INJURY/ILLNESS CONSISTENT WITH YOUR OBJECTIVE FINDING? YES WHAT IS THE PERCENTAGE OF TEMPORARY IMPAIRMENT? MODERATE TO MARKED = 66.7% IS THE PATIENT WORKING? YES DOCTOR ON SITE: FREDERICK RIVERA MD PROCEDURE CODES FA211 ESTABILISHED PATIENT [facility] FACILITY CHARGE G8427 DOC MEDS VERIFIED W/PT OR RE G8730 PAIN ASSESS POS TOOL F/U PLAN DOC DISPOSITION & COMMUNICATION FOLLOW UP 3 WEEKS ELECTRONICALLY SIGNED BY FREDERICK ECHEVERRIA MD ON 01/26/2017 AT 12:43 PM EDT DISCLAIMER : THIS IS A VISIT SUMMARY EXTRACTED FROM THE [employer] CHART. IT IS NOT A COPY OF THE [employer] PROGRESS NOTE. NATALIIA
== END ==
LOC: M PAIN 15:40
PROVIDERS: ATTEND Anesthesiology
DX: M51.16 Intervertebral disc disorders with radiculopathy, lumbar region (principal); M47.816 Spondylosis without myelopathy or radiculopathy, lumbar region; M51.17 Intervertebral disc disorders with radiculopathy, lumbosacral region; M47.817 Spondylosis without myelopathy or radiculopathy, lumbosacral region; M54.5 Low back pain; G89.29 Other chronic pain; Z79.891 Long term (current) use of opiate analgesic; Z79.899 Other long term (current) drug therapy; J30.9 Allergic rhinitis, unspecified

== ENCOUNTER → 2017-03-29 | Outpatient (CLI) | payer OTHER ==
--- NOTE | 2017-04-14 01:36 | ECWPNPC ---
PATIENT NAME: BETZY TRIPP : 1975 GENDER: MALE VISIT DATE: 03/29/2017 DISCHARGE DATE: 03/29/17 1044 VISIT LOCKED DATE TIME: PHYSICIAN: FREDERICK ECHEVERRIA RESOURCE: FREDERICK ECHEVERRIA REASON FOR APPOINTMENT 1. LOW BACK PAIN W/C HISTORY OF PRESENT ILLNESS HISTORY OF PRESENT ILLNESS: PAIN THE PATIENT DESCRIBES THE PAIN... 40 YEAR OLD MALE PATIENT WITH HISTORY OF CHRONIC BACK PAIN. PATIENT DESCRIBES THE PAIN SHARP, STABBING, IT COMES AND GOES, AND HAVING IT ALL THE TIME WITH A PAIN SORE OF 10/10 IN THE LAST MONTH. 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 PATIENT REPORTS THE PAIN RADIATES DOWN THE RIGHT LEG. PATIENT IS USING IBUPROFEN, ADVIL, AND TRAMADOL FOR THE PAIN AND REPORTS THE MEDICATION AIDS IN MILD PAIN RELIEF. PATIENT REPORTS DOING PHYSICAL THERAPY IN THE PAST AND STATES THAT IS INCREASING HIS MOBILITY AND FUNCTIONALITY. PATIENT CONTINUES TO DO STRETCHING AT HOME BUT REPORTS HE HAS MORE OF A BENEFIT WHEN HE GOES TO PHYSICAL THERAPY AND INCREASES MOBILITY AND FUNCTIONALITY. PATIENT REPORTS HAVING DIFFICULTIES PERFORMING DAILY ACTIVITIES SUCH GETTING DRESSED, CARRYING GROCERIES, GETTING IN AND OUT OF THE TRUCK AND A TINGLY SENSATION DOWN THE LEG. PATIENT DENIES UNEXPLAINABLE WEIGHT LOSS, FEVER, CHILLS, NEW CHANGES ON HER URINARY OR BOWEL CONTROL. FALL RISK SCREENING: SCREENING :NO FALLS IN THE PAST YEAR CURRENT MEDICATIONS TAKING PEPCID COMPLETE 1 TABLET NEEDED ONCE DAILY TAKING ADVIL 200 MG TABLET 2 TABLETS NEEDED ORALLY EVERY 6 HRS TAKING TRAMADOL HCL 50 MG TABLET 1 ORALLY Q6H PRN PAIN MDD4 TAKING IBUPROFEN 800 MG TABLET 1 TABLET ORALLY WITH FOOD THREE TIMES A DAY NEEDED FOR PAIN NOT-TAKING VALIUM 10 MG TABLET 1 ORALLY 1 TAB 1HR PRE PROC. MDD1 MEDICATION LIST REVIEWED AND RECONCILED WITH THE PATIENT PAST MEDICAL HISTORY LOW BACK PAIN NECK PAIN HEARTBURN ARTHRITIS ALLERGIES ENVIRONMENTAL: SINUS CONGESTION: ALLERGY REVIEW OF SYSTEMS REVIEWED BY: PROVIDER: FREDERICK ECHEVERRIA MD . CONSTITUTIONAL: ANY CHANGE IN YOUR MEDICAL CONDITION? NO . CHILLS NO . FEVER NO . INFECTION: DO YOU HAVE NEW INFECTIONS? NO . DO YOU HAVE HISTORY OF MRSA? NO . MUSCULOSKELETAL: ANY NEW PATTERNS OF PAIN OR NUMBNESS? YES, RIGHT BUTTOCK AREA . GASTROENTEROLOGY: ANY NEW CHANGE IN BOWEL CONTROL? NO . GENITOURINARY: ANY NEW CHANGE IN BLADDER CONTROL? NO . IS THERE A CHANCE YOU COULD BE ? NO . HEMATOLOGY/LYMPH: DO YOU TAKE ANY BLOOD THINNERS? (FOR EXAMPLE- COUMADIN, PLAVIX, AGGRENOX, PLATEL, PRADAXA, OR XARELTO) NO . WHEN WAS YOUR LAST DOSE? DATE: TIME: . NEUROLOGY: HAVE YOU FALLEN IN THE PAST 6 MONTHS? NO . ANY NEW EXTREMITY NUMBNESS OR WEAKNESS? NO . CARDIOLOGY: DO YOU HAVE A PACEMAKER OR DEFIBRILLATOR? NO . RESPIRATORY: HAVE YOU BEEN SICK IN THE PAST WEEK? NO . FEVER NO . FLU LIKE SYMPTOMS? NO . COUGH NO . INTEGUMENTARY: DO YOU HAVE ANY RASHES OR OPEN SORES? NO . ALLERGIC/IMMUNO: ARE YOU ALLERGIC TO SHELLFISH OR IV DYE? NO . ANY NEW ALLERGIES? NO . PSYCHIATRIC: DO YOU HAVE THOUGHTS OF HURTING YOURSELF OR SOMEONE ELSE? NO . ARE YOU ABUSED, NEGLECTED, OR IN AN UNSAFE ENVIRONMENT? NO . ENDOCRINOLOGY: ARE YOU DIABETIC? NO . OTHER: DO YOU NEED ANY PRESCRIPTIONS? YES . IF YES, PLEASE LIST: TRAMADOL , IBUPROFEN . ANY NEW PROBLEMS WITH YOUR MEDICATIONS? NO . WHEN DID YOU LAST EAT? ____ . WHEN DID YOU LAST DRINK? ____ . WHAT DID YOU LAST DRINK? ____ . NAME OF PERSON DRIVING YOU HOME? ____ . DO YOU HAVE ANY OTHER QUESTIONS OR CONCERNS NO . VITAL SIGNS WT 220 LBS, HT 72 IN, BMI 29.83 INDEX, BP 147/77 MM HG, HR 60 /MIN, RR 18 /MIN, TEMP 97.2 F, OXYGEN SAT % 99%, NA INITIALS SC 08:47, REVIEWED BY: NL. EXAMINATION : PATIENT IS ALERT O X 3 AND COOPERATIVE. PATIENT AMBULATES WITH A LIMP ON THE RIGHT LEG. THERE IS TENDERNESS IN THE LUMBAR PARASPINAL MUSCLE GROUP. RIGHT LEG IS WEAKER AT FLEXION AND EXTENSION. STRAIGHT LEG RAISING TEST POSITIVE AT 45 DEGREES AT RIGHT LEG FOR RADICULOPATHY. REFLEXES OF RIGHT 1/4 AND LEFT 2/4. MRI OF THE LUMBAR SPINE DONE ON 09/16/2015 SHOWS DISC BULGES AT MULTIPLE LEVELS, CANAL STENOSIS. ASSESSMENTS LUMBAR SPINAL STENOSIS - M48.06 (PRIMARY) INTERVERTEBRAL DISC DISORDER WITH RADICULOPATHY OF LUMBAR REGION - M51.16 INTERVERTEBRAL DISC DISORDER WITH RADICULOPATHY OF LUMBOSACRAL REGION - M51.17 TREATMENT LUMBAR SPINAL STENOSIS REFILL TRAMADOL HCL TABLET, 50 MG, 1, ORALLY, Q6H PRN PAIN MDD4, 30 DAYS, 105, REFILLS 0 NOTES: WE DISCUSSED SEVERAL ISSUES WITH MR. TRIPP'S PAIN MANAGEMENT CASE. PATIENT WILL USE TRAMADOL FOR THE SOMATIC PAIN AND IBUPROFEN FOR THE INFLAMMATION. PATIENT DENIES ABUSE OF ANY MEDICATION, DENIES USE OF ILLEGAL SUBSTANCES, AND STATES THAT HE IS ONLY USING THE MEDICATION FOR PAIN MANAGEMENT. PATIENT WAS REMINDED TO BRING ALL MEDICATIONS TO EACH VISIT. URINE TOXICOLOGY REPORT DONE ON 06/22/16 SHOWS CONSISTENT RESULTS WITH THE PATIENTS MEDICATION LIST. I WOULD LIKE THE PATIENT TO CONTINUE PHYSICAL THERAPY AT THIS TIME DUE TO THE PATIENT HAVING INCREASED MOBILITY AND FUNCTIONALITY WHILE DOING IT. PATIENT REPORTS DOING STRETCHES AND HOME EXERCISES DAILY AND STATES THAT HE HAS A BETTER BENEFIT WHEN A PHYSICAL THERAPIST IS PRESENT AND WORKING WITH HIM. PATIENT STATES HE HAS EXTREME DIFFICULTIES DOING EVERYDAY THINGS WITH REFLEXES REDUCED AND SEVERE PAIN OVER RIGHT LEG. DUE TO THE RADICULAR PAIN IN THE RIGHT LEG I WOULD LIKE TO PROCEED WITH A LUMBAR EPIDURAL. WE DISCUSSED THE RISKS, BENENFITS, AND ALTNERATIVES OF THE INJECTION AND THE PATIENT WOULD LIKE TO PROCEED AT THIS TIME. INSTRUCTIONS WERE GIVEN, QUESTIONS WERE ANSWERED, PATIENT REPORTS UNDERSTANDING AND AGREES WITH THE PLAN. I, PAOLO CALLAWAY, DOCUMENTED THE ABOVE INFORMATION ACTING A SCRIBE FOR DR. ECHEVERRIA. I HAVE REVIEWED THE ABOVE DOCUMENT, WRITTEN BY PAOLO ANTHONY AND I VERIFY THAT IT IS ACCURATE. OTHERS REFILL IBUPROFEN TABLET, 800 MG, 1 TABLET, ORALLY WITH FOOD, THREE TIMES A DAY NEEDED FOR PAIN, 30 DAYS, 60, REFILLS 1 CLINICAL NOTES: ISTOP REVIEWED NUMBER [id number]. PREVENTIVE MEDICINE REVIEWED PRE PROCEDURE CARE WITH PT AND HE DID EXPRESS UNDERSTANDING OF ALLISTOP REVIEWED NUMBER [id number]. PROCEDURE CODES FA211 ESTABILISHED PATIENT [facility] FACILITY CHARGE G8427 DOC MEDS VERIFIED W/PT OR RE G8730 PAIN ASSESS POS TOOL F/U PLAN DOC DISPOSITION & COMMUNICATION FOLLOW UP 3 WEEKS ELECTRONICALLY SIGNED BY FREDERICK ECHEVERRIA MD ON 04/11/2017 AT 06:19 PM EST DISCLAIMER : THIS IS A VISIT SUMMARY EXTRACTED FROM THE [employer] CHART. IT IS NOT A COPY OF THE [employer] PROGRESS NOTE. MTDD
== END ==
LOC: M PAIN 08:30
PROVIDERS: ATTEND Anesthesiology
DX: M48.061 Spinal stenosis, lumbar region without neurogenic claudication (principal); M51.16 Intervertebral disc disorders with radiculopathy, lumbar region; M51.17 Intervertebral disc disorders with radiculopathy, lumbosacral region; M54.9 Dorsalgia, unspecified; G89.29 Other chronic pain; Z79.891 Long term (current) use of opiate analgesic; Z79.899 Other long term (current) drug therapy; J30.9 Allergic rhinitis, unspecified

== ENCOUNTER → 2017-04-27 | Outpatient (CLI) | payer OTHER ==
[~2017-04-27] MED LIST changes: -ACYC400T PO; +ISOVUE-M 300 61% 15ML VIAL (Q9967) As Ordered; +LIDOCAINE 1% SDV INJ 30 ML VIAL As Ordered; -PEPC10TA PO; -ULTR50TA PO; -VITATAB73 PO; -[UNRECOGNIZED DRUG - OTHER] PO; +diazePAM 5 MG TAB As Ordered; +methylPREDNISolone SUSP 40 MG/ML (DEPO-medrol) VIAL (J1030) As Ordered; +oxyCODONE 5MG TAB As Ordered
== END ==
LOC: M PAIN 08:45
DX: G89.29 Other chronic pain (principal); M51.16 Intervertebral disc disorders with radiculopathy, lumbar region; J30.89 Other allergic rhinitis; Z79.899 Other long term (current) drug therapy
CPT/HCPCS: J1030

== ENCOUNTER → 2017-04-28 | Outpatient (CLI) | payer OTHER ==
[~2017-04-28] MED LIST changes: +ACYC400T PO; -ISOVUE-M 300 61% 15ML VIAL (Q9967) As Ordered; -LIDOCAINE 1% SDV INJ 30 ML VIAL As Ordered; +PEPC10TA PO; +ULTR50TA PO; +VITATAB73 PO; +[UNRECOGNIZED DRUG - OTHER] PO; -diazePAM 5 MG TAB As Ordered; -methylPREDNISolone SUSP 40 MG/ML (DEPO-medrol) VIAL (J1030) As Ordered; -oxyCODONE 5MG TAB As Ordered
== END ==
LOC: M PAIN 15:00
PROVIDERS: ATTEND Anesthesiology
DX: Z53.29 Procedure and treatment not carried out because of patient's decision for other reasons (principal)

== ENCOUNTER → 2017-05-24 | Outpatient (CLI) | payer OTHER | LOC: M PAIN 15:15 | DX: M48.061 Spinal stenosis, lumbar region without neurogenic claudication (principal); M51.26 Other intervertebral disc displacement, lumbar region; M54.16 Radiculopathy, lumbar region; M19.90 Unspecified osteoarthritis, unspecified site; J30.89 Other allergic rhinitis; Z79.891 Long term (current) use of opiate analgesic; Z79.899 Other long term (current) drug therapy | CPT/HCPCS: G0463 ==

== ENCOUNTER → 2017-07-08 | Outpatient (CLI) | payer OTHER | LOC: M PAIN 15:30 | DX: G89.29 Other chronic pain (principal); M51.16 Intervertebral disc disorders with radiculopathy, lumbar region; M51.17 Intervertebral disc disorders with radiculopathy, lumbosacral region; M19.90 Unspecified osteoarthritis, unspecified site; R12 Heartburn; J30.9 Allergic rhinitis, unspecified; Z79.899 Other long term (current) drug therapy | CPT/HCPCS: G0463 ==

== ENCOUNTER → 2021-10-30 | Outpatient (REF) | payer OTHER | LOC: M LAB REF 09:44 | PROVIDERS: ATTEND Physician Assistant | DX: J02.9 Acute pharyngitis, unspecified (principal) ==

== ENCOUNTER → 2023-02-01 | Outpatient (CLI) | payer OTHER | LOC: M PAIN 08:00 | PROVIDERS: ATTEND Nurse Practitioner Family | DX: M51.16 Intervertebral disc disorders with radiculopathy, lumbar region (principal); M54.2 Cervicalgia; R12 Heartburn; Z79.891 Long term (current) use of opiate analgesic; Z79.899 Other long term (current) drug therapy; J30.1 Allergic rhinitis due to pollen ==

== ENCOUNTER → 2023-06-07 | Outpatient (CLI) | payer OTHER | LOC: M RAD 06:44 | PROVIDERS: ATTEND Nurse Practitioner Family | DX: M54.59 Other low back pain (principal) ==

== ENCOUNTER → 2023-06-16 | Outpatient (CLI) | payer OTHER | LOC: M PAIN 09:30 | PROVIDERS: ATTEND Nurse Practitioner Family | DX: M51.16 Intervertebral disc disorders with radiculopathy, lumbar region (principal); M54.2 Cervicalgia; R12 Heartburn; Z79.891 Long term (current) use of opiate analgesic; Z79.899 Other long term (current) drug therapy ==

== ENCOUNTER → 2023-11-17 | Outpatient (CLI) | payer OTHER | LOC: M PAIN 08:00 | PROVIDERS: ATTEND Nurse Practitioner Family | DX: M51.16 Intervertebral disc disorders with radiculopathy, lumbar region (principal); G89.29 Other chronic pain; M54.50 Low back pain, unspecified; Z79.891 Long term (current) use of opiate analgesic; Z79.899 Other long term (current) drug therapy ==

== ENCOUNTER → 2023-12-31 | Outpatient (REF) | payer MEDICARE ==
[2023-12-31 22:03] LABS: GC DNA AMPLIFICATION NEGATIVE (NEGATIVE)
== END ==
LOC: M WUC 19:50
PROVIDERS: ATTEND Physician Assistant
DX: R21 Rash and other nonspecific skin eruption (principal); Z11.3 Encounter for screening for infections with a predominantly sexual mode of transmission

== ENCOUNTER → 2024-01-13 | Outpatient (CLI) | payer OTHER | LOC: M PAIN 09:00 | PROVIDERS: ATTEND Nurse Practitioner Family | DX: M51.16 Intervertebral disc disorders with radiculopathy, lumbar region (principal); G89.29 Other chronic pain; M54.2 Cervicalgia; R12 Heartburn; Z79.891 Long term (current) use of opiate analgesic; Z79.899 Other long term (current) drug therapy ==

== ENCOUNTER → 2024-04-12 | Outpatient (CLI) | payer OTHER | LOC: M PAIN 09:00 | PROVIDERS: ATTEND Nurse Practitioner Family | DX: M51.16 Intervertebral disc disorders with radiculopathy, lumbar region (principal); G89.29 Other chronic pain; R12 Heartburn; Z79.899 Other long term (current) drug therapy ==

== ENCOUNTER → 2024-04-23 | Outpatient (CLI) | payer OTHER | LOC: M RAD 06:26 | PROVIDERS: ATTEND Nurse Practitioner Family | DX: K40.90 Unilateral inguinal hernia, without obstruction or gangrene, not specified as recurrent (principal) ==

== ENCOUNTER → 2024-04-23 | Outpatient (CLI) | payer OTHER | LOC: M RAD 07:00 | PROVIDERS: ATTEND Nurse Practitioner Family | DX: R10.2 Pelvic and perineal pain (principal); Z53.9 Procedure and treatment not carried out, unspecified reason ==

== ENCOUNTER → 2024-05-24 | Outpatient (CLI) | payer OTHER | LOC: M PAIN 09:15 | PROVIDERS: ATTEND Nurse Practitioner Family | DX: M51.16 Intervertebral disc disorders with radiculopathy, lumbar region (principal); G89.29 Other chronic pain; M54.2 Cervicalgia; Z79.899 Other long term (current) drug therapy ==

== ENCOUNTER 2024-06-27 08:49 | Day surgery (SDC) | payer BC ==
[~2024-06-27] VITALS: Ht 188 cm; Wt 110.2 kg
[~2024-06-27 08:49] MED LIST changes: +ALEV220T22 PO; +BAYE500T2 PO; +FAMO20TA PO; +LIDOCAINE 2% 100MG/5ML SDV (FOR ANES.) As Ordered ONE; +PEPC1TAB5 PO; +[UNRECOGNIZED DRUG - OTHER] PO; +propofoL 200 MG/20 ML VIAL As Ordered ONE
[2024-06-27 10:29] VITALS: TEMP 99.2
[2024-06-27 10:44] VITALS: BP 110/65; O2SAT 97
== END 2024-06-27 11:00 | disposition home or self-care (01) ==
LOC: M OPP 08:49
PROVIDERS: ATTEND Surgery
DX: Z12.11 Encounter for screening for malignant neoplasm of colon (principal); K63.5 Polyp of colon; K57.30 Diverticulosis of large intestine without perforation or abscess without bleeding; Z79.82 Long term (current) use of aspirin; Z79.899 Other long term (current) drug therapy; Z87.891 Personal history of nicotine dependence

== ENCOUNTER 2024-07-06 10:27 | Day surgery (SDC) | payer BC ==
[~2024-07-06] VITALS: Ht 182.9 cm; Wt 112.0 kg
[~2024-07-06 10:27] MED LIST changes: -LIDOCAINE 2% 100MG/5ML SDV (FOR ANES.) As Ordered ONE; -propofoL 200 MG/20 ML VIAL As Ordered ONE
[2024-07-06] MEDS: CelecoXIB 400 MG CAP PO ONE (11:15)
[2024-07-06] MEDS ORDERED: LR 1,000 ML IV SCH ×2 (11:25→14:00)
[2024-07-06] MEDS ORDERED: SUGAMMADEX SODIUM 500 MG/5 ML VIAL (BRIDION) As Ordered ONE (12:05)
[2024-07-06] MEDS ORDERED: MIDAZOLAM INJ 2MG/2ML VIAL As Ordered ONE (12:05)
[2024-07-06] MEDS ORDERED: fentaNYL 250 MCG/5 ML INJECTION As Ordered ONE (12:05)
[2024-07-06] MEDS ORDERED: ROCURONIUM BROMIDE 50MG/5ML VIAL As Ordered ONE (12:05)
[2024-07-06] MEDS ORDERED: KETOROLAC 60MG 2ML VIAL As Ordered ONE (12:05)
[2024-07-06] MEDS ORDERED: propofoL 200 MG/20 ML VIAL As Ordered ONE (12:05)
[2024-07-06] MEDS ORDERED: LIDOCAINE 2% 100MG/5ML SDV (FOR ANES.) As Ordered ONE (12:05)
[2024-07-06] MEDS ORDERED: dexmedeTOMIDine (4MCG/ML)200MCG/50ML BTL (PRECEDEX) As Ordered ONE (12:05)
[2024-07-06] MEDS ORDERED: METOCLOPRAMIDE INJ 10MG/2ML VIAL As Ordered ONE (12:05)
[2024-07-06] MEDS ORDERED: ONDANSETRON 4MG 2ML VIAL As Ordered ONE (12:05)
[2024-07-06] MEDS ORDERED: ACETAMINOPHEN 1000MG/100ML IV BAG As Ordered ONE (12:09)
[2024-07-06] MEDS: ceFAZolin SOD 2 GM in IV 1 EA IV ONE (12:13)
[2024-07-06] MEDS: LIDOCAINE 1% SDV 30ML VIAL As Ordered ONE (13:47)
[2024-07-06] MEDS ORDERED: HYDROMORPHONE HCL 0.5 MG/ 0.5 ML SYRINGE IV PRN (14:00)
[2024-07-06] MEDS ORDERED: fentaNYL 100 MCG/2 ML INJECTION IV PRN (14:00)
[2024-07-06] MEDS ORDERED: METOCLOPRAMIDE INJ 10MG/2ML VIAL IV PRN (14:00)
[2024-07-06] MEDS ORDERED: ONDANSETRON 4MG 2ML VIAL IV PRN (14:00)
[2024-07-06] MEDS: oxyCODONE 5MG TAB PO PRN (14:18)
[2024-07-06 15:03] VITALS: BP 135/72; TEMP 97.3; O2SAT 98
== END 2024-07-06 15:22 | disposition home or self-care (01) ==
LOC: M SDC 10:27
PROVIDERS: ATTEND Surgery
DX: K40.91 Unilateral inguinal hernia, without obstruction or gangrene, recurrent (principal); D17.6 Benign lipomatous neoplasm of spermatic cord; R07.9 Chest pain, unspecified; R06.83 Snoring; Z87.891 Personal history of nicotine dependence; Z79.899 Other long term (current) drug therapy
CPT/HCPCS: 49521; 64486; C1781; J0131; J0665; J0690; J1100; J1885; J2250; J2405; J2765; J3010; S2900

== ENCOUNTER → 2024-12-20 | Outpatient (CLI) | payer BC ==
[~2024-12-20] MED LIST changes: +OMEGA-3 1000 MG CAPSULE ONE; +PROHANCE 279.3MG/ML 15ML VIAL ONE; +PROHANCE 279.3MG/ML 5ML VIAL ONE
== END ==
LOC: M PLAIMG 09:03
PROVIDERS: ATTEND Surgery
DX: R10.32 Left lower quadrant pain (principal); K40.91 Unilateral inguinal hernia, without obstruction or gangrene, recurrent
CPT/HCPCS: 72197; A9576

== ENCOUNTER → 2025-01-16 | Outpatient (CLI) | payer BC ==
[~2025-01-16] MED LIST changes: +ISOVUE-370 76% 100 ML VIAL ONE; -OMEGA-3 1000 MG CAPSULE ONE; -PROHANCE 279.3MG/ML 15ML VIAL ONE; -PROHANCE 279.3MG/ML 5ML VIAL ONE
== END ==
LOC: M PLAIMG 08:56
PROVIDERS: ATTEND Surgery
DX: K57.30 Diverticulosis of large intestine without perforation or abscess without bleeding (principal); R10.32 Left lower quadrant pain
CPT/HCPCS: 74177; Q9967

== ENCOUNTER → 2025-04-30 | Outpatient (CLI) | payer BC ==
[~2025-04-30] MED LIST changes: -ISOVUE-370 76% 100 ML VIAL ONE
== END ==
LOC: M WUC 11:40
DX: R10.11 Right upper quadrant pain (principal); R06.02 Shortness of breath

== ENCOUNTER → 2025-05-01 | Outpatient (CLI) | payer BC | LOC: M RAD 08:56 | DX: K80.20 Calculus of gallbladder without cholecystitis without obstruction (principal); K76.0 Fatty (change of) liver, not elsewhere classified; R10.11 Right upper quadrant pain; R06.02 Shortness of breath ==